=== PATIENT | female | born 2000 | race Caucasian/White ===

== ENCOUNTER 2021-02-21 12:34 | Outpatient (REF) | payer MEDICAID, SELFPAY ==
[2021-02-21 13:37] LABS: Binax Internal Control QC Valid; Binax Now Covid-19 Ag Positive (Negative)
== END 2021-02-21 12:35 | disposition home or self-care (01) ==
LOC: HO.LAB 12:34
PROVIDERS: Visit Provider Internal Medicine
DX: Z20.822 Contact with and (suspected) exposure to COVID-19 (principal)
CPT/HCPCS: 36415; C9803

== ENCOUNTER 2021-08-30 09:07 | Outpatient (REF) | payer OTHER, SELFPAY ==
[2021-08-30 10:59] LABS: MANUAL DIFF FLAG NO
[2021-08-30 11:01] LABS: Basophils Percent Auto 0.6 % (0-2); Eosinophils Absolute Auto 0.4 X10*3/uL (0.0-0.4); Hematocrit 41.7 % (37.0-47.0); Hemoglobin 14.1 g/dl (12.0-16.0); Imm Gran Abs Auto 0.02 X10*3/uL (0.00-0.03); Imm Gran Pct Auto 0.3 % (0.0-0.4); Lymphocytes Absolute Auto 2.1 X10*3/uL (1.2-4.9); Lymphocytes Percent Auto 34.1 % (20-40); Mean Corpuscular HGB Conc 33.8 g/dl (31.0-35.0); Mean Corpuscular Hemoglobin 29.6 pg (27.0-33.0); Mean Corpuscular Volume 87.6 fL (80.0-98.0); Mean Platelet Volume 10.5 fL (9.4-12.3); Monocytes Absolute Auto 0.4 X10*3/uL (0.1-1.2); Monocytes Percent Auto 6.6 % (2-11); Neutrophils Absolute Auto 3.2 x10*3/uL (2.0-8.3); Neutrophils Percent Auto 51.4 % (45-73); Platelet Count 234 X10*3/uL (160-400); Red Blood Count 4.76 X10*6/uL (4.20-5.50); Red Cell Distribution Width 12.6 % (11.0-16.0); White Blood Count 6.2 X10*3/uL (4.8-10.8)
[2021-08-30 11:24] LABS: Alanine Aminotransferase 15 U/L (0-31); Anion Gap 10 (12-20); Aspartate Amino Transferase 15 U/L (5-31); Blood Urea Nitrogen 10 mg/dL (9-16); Calcium 9.1 mg/dL (8.4-10.2); Carbon Dioxide 24 mmol/L (22-29); Chloride 108 mmol/L (96-108); Cholesterol 149 mg/dL; Estimated Glomerular Filt Rate > 60; Glucose Fasting 98 mg/dL (60-99); HDL Cholesterol 44 mg/dL; LDL Cholesterol Calculated 91 mg/dl; Sodium 137 mmol/L (135-145); Triglycerides 73 mg/dL
[2021-08-30 11:46] LABS: TSH reflex Free T4 1.48 uIU/mL (0.32-4.0); Vitamin D 25-OH Total 22.5 ng/mL (>30)
[2021-09-01 08:11] LABS: Folate 15.3 ng/mL (> or = 4.0); Vitamin B12 773 pg/mL (200-900)
== END 2021-08-30 09:08 | disposition home or self-care (01) ==
LOC: HO.HMGCLDS 09:07
PROVIDERS: Visit Provider Internal Medicine
DX: Z00.01 Encounter for general adult medical examination with abnormal findings (principal)
CPT/HCPCS: 36415; 80048; 80061; 82306; 82607; 82746; 83735; 84443; 84450; 84460; 85025

== ENCOUNTER 2024-10-02 08:26 | Outpatient (AMB) | payer OTHER, SELFPAY ==
--- OUTSIDE RECORDS SUMMARY | 2024-10-02 08:50 | XMS_ITS | Encounter Summary ---
Author Organization [facility] Address [address] [place] [phone] Phone Care Team Providers Care Evp Chief Exploration Officer Name Role Phone Guilherme Schmitz MD Primary Care Provider Liliam rodriguez Encounter Details Date Type Department Care Team (Latest Contact Info) Description 11/27/2019 ED [facility] Social History Tobacco Use Types Packs/Day Years Used Date Smoking Tobacco: Never Smokeless Tobacco: Never Comments:Never smoker Alcohol Use Standard Drinks/Week Comments No 0 (1 standard drink = 0.6 oz pur e alcohol) Comments No Sex and Gender Information Value Date Recorded Sex Assigned at Not on file Legal Sex Female 4:46 PM EDT Gender Identity Not on file Sexual Orientation Not on file documented as of this encounter ED Notes * [facility], [facility] - 11/27/2019 4:36 PM EDT EDPDOC [facility] EDM *LIVE* ED Physician Documentation Summary Report Patient: SHERI CORTES Service Date: 11/27/19 Account: [id number] : 2000 Service Time: 1636 PCP: ANALILIA DANIEL#: [id number] Pre-Evaluation Initial Comments 19 year old female complaining of Palpitations, Chest pain Pre-Evaluation Screening Done: Yes Acute Distress: No Vital Signs Reviewed: Yes Diagnositics Ordered: Yes Further ER Evaluation Required: Yes Additional Pre-Eval Comments 19-year-old female presents to the ED complaining of heart palpitations sweats, anxiety, diarrhea x1 week. EKG reviewed. Labs ordered. JORGE SHAH PA-C Nov 27, 2019 15:51 ED Physician: JORGE SHAH PA-C Documentation Date/Time: 11/27/191550 Cosigner: TIARA JOSHI DO Cosigner: <Electronically signed by JORGE SHAH PA-C> 11/27/191550 <Electronically signed by TIARA JOSHI DO> 11/28/19 0818 documented in this encounter Plan of Treatment Not on file documented as of this encounter Visit Diagnoses Not on filedocumented in this encounter Care Teams Evp Chief Exploration Officer Relationship Specialty Start Date End Date Guilherme Schmitz MD PCP - General 09/25/16 04/29/22 documented as of this encounter
--- OUTSIDE RECORDS SUMMARY | 2024-10-02 08:50 | XMS_ITS | Clinical Summary ---
Author Organization [facility] Address [address] [place] [address] Care Team Providers Care Shoe Puller Name Role Phone Karol Bangura MD Primary Care Provider Surgical History Surgery Date Site/Laterality Comments OTHER SURGICAL HISTORY PROCEDURE: DENIES PREVIOUS SURGERY Medical History Medical History Date Comments Migraines DX:Migraines Social History Tobacco Use Types Packs/Day Years Used Date Smoking Tobacco: Never Smokeless Tobacco: Former Alcohol Use Standard Drinks/Week Comments No 0 (1 standard drink = 0.6 oz pur e alcohol) Comments Unknown Sex and Gender Information Value Date Recorded Sex Assigned at Not on file Legal Sex Female 2:47 PM EST Gender Identity Not on file Sexual Orientation Not on file Obstetrics History Last Filed Vital Signs Vital Sign Reading Time Taken Comments Blood Pressure 112/79 06/12/2022 8:37 AM EDT Pulse 103 06/12/2022 8:37 AM EDT Temperature - - Respiratory Rate - - Oxygen Saturation - - Inhaled Oxygen Concentration - - Weight 95.7 kg (211 lb) 06/12/2022 8:37 AM EDT Height 177.8 cm (5' 10 ) 06/12/2022 8:37 AM EDT Body Mass Index 30.28 06/12/2022 8:37 AM EDT Plan of Treatment Health Maintenance Due Date Last Done Comments HPV Vaccines (1 - 3-dose series) 2014 DTaP,Tdap,and Td Vaccines (1 - Tdap) 2018 Hepatitis B Vaccines (1 of 3 - 19+ 3-dose series) 2018 Cervical Cancer Screening: P ap Smear 2020 HIV Screening 03/17/2023 Hepatitis C Screening 03/17/2023 Social Influencers of Health Screening 03/17/2023 COVID-19 Vaccine (1 - 2023-2 5 season) 2023 Depression Screening 02/16/2024 Influenza Vaccine (#1) 2024 HIB Vaccines Aged Out No longer eligi ble based on patient's age to complete this topic Hepatitis A Vaccines Aged Out No long er eligible based on patient's age to complete this topic IPV Vaccines Aged Out No longer eligi ble based on patient's age to complete this topic MMR Vaccines Aged Out No longer eligi ble based on patient's age to complete this topic Meningococcal ACWY Vaccine Aged Out N o longer eligible based on patient's age to complete this topic Meningococcal B Vaccine Aged Out No l onger eligible based on patient's age to complete this topic Pneumococcal Vaccine: Pediat rics (0 to 5 Years) and At-Risk Patients (6 to 49 Years) Aged Out No longer eligible b ased on patient's age to complete this topic RSV Immunization Patients Un fernando 20 months Aged Out No longer eligible b ased on patient's age to complete this topic Varicella Vaccines Aged Out No longer eligible based on patient's age to complete this topic Care Teams Shoe Puller Relationship Specialty Start Date End Date Karol Bangura MD [address] [place] [address] PCP - General 06/11/22
--- NOTE | 2024-10-02 08:57 | AM.OFFWIN_ITS ---
Intake Vital Signs 10/02/24 08:58 Height 5 ft 9 in Weight 211 lb 6 oz BMI 31.2 BP 100/62 Blood Pressure Location Lt brachial Position Sitting Pulse 90 Pulse Source Pulse Oximeter Temp 98.6 F Temp Source Oral Pulse Oximetry (%) 95 Oxygen Delivery Method Room Air Intake Visit Reasons: EP-swollen glands Patient Tobacco Use Status: Former Tobacco user Bd Special Education Teacher Required: No Is last menstrual period known: No Post menopausal: No Patient : No Allergies barakat Adverse Reaction (Verified 10/02/24 09:02) hives keflex Adverse Reaction (Uncoded 08/25/21 10:44) rash HPI HPI Comments History of Present Illness Details History - The patient is a 24-year-old female pr esenting with sore throat, swollen tonsils with white exudate. - Symptoms began late Wednesday, initially on one side, progressing to both sides by Wednesday afternoon. - She denies cough or headache but had a mild fever of 99?F, which resolved quickly. - The patient has a history of dental in fection from an infected wisdom tooth extraction on November 03 and is on amoxicillin 500 mg. - Has been taking Tylenol and Motrin for the pain with relief. - She states that when it wears off she has pain and it hurts to swallow. - She denies cough, ear pain, abd pain, n/v/d. Physical Exam General: Cooperative, healthy appearing, comfortable and no acute distress Orientation/consciousness: Patient oriented x3 Limitations: No limitations Head: Normal to inspection Ears: Hearing grossly normal bilaterally, external ears normal and TM's normal bilaterally Nose: Normal external nose present, normal nares present, and no nasal discharge present. Face and sinus: Sinuses nontender to palpation. Mouth: Normal oral and palatal mucosa present and moist mucous membranes noted. Throat: Tonsils swollen and inflamed with white exudates present. Uvula is midline. Posterior oropharynx with erythema. Tonsils Eyes: Appearance normal, both eyes and all related structures Neck: Normal visual inspection, full ROM. No lymphadenopathy noted. Respiratory: Clear to auscultation bilaterally. Normal respiratory effort, able to speak in complete sentences. No respiratory distress, not tachypneic, no tripod positioning and no use of accessory muscles. Cardiovascular: Regular rate and rhythm. Normal S1 and S2 Skin: No rashes or lesions noted Patient was informed and verbally consented to the use of an ambient scribe for clinic note documentation during this visit [facility] Medical History (Updated 08/26/21 @ 03:56 by Karol Bangura MD) No pertinent past medical history Surgical History (Updated 08/26/21 @ 03:56 by Karol Bangura MD) No pertinent past surgical history Family History (Updated 08/25/21 @ 10:55 by Karol Bangura MD) Maternal Grandmother Myocardial infarction Mother Fibromyalgia Social History Housing: House Patient Tobacco Use Status: Former Tobacco user e-Cigarette/Vaping Use: Former Use Patient : No service: No Current occupational status: employed Cognitive needs: No Hearing needs: No Vision needs: No Review of Systems Const All systems reviewed & are unremarkable except as noted in HPI and below Physical Exam Vital Signs: Last Vital Signs Temp 98.6 F 10/02/24 08:58 Pulse 90 10/02/24 08:58 BP 100/62 10/02/24 08:58 Pulse Ox 95 10/02/24 08:58 Oxygen Delivery Method Room Air 10/02/24 08:58 BMI result Body Mass Index 31.2 Assessment & Plan Assessment & Plan (1) Sore throat: Code(s): J02.9 - Acute pharyngitis, unspecified Plan Most likely strep vs HOSPICE REGISTERED NURSE vs mono vs tonsillitis Rapid is negative Plan - Discontinue amoxicillin and prescribe an alternative antibiotic for t onsillitis. - Tylenol or Motrin as needed for pain or fever - Diet as tolerated - Salt water gargles - VSS, pt well appearing - follow up with PCP Medications: New amoxicillin-pot clavulanate 875-125 mg 1 tab PO Q12H 14 tabs 0RF Coding Level of Care Code Est Pt Level 3 (50223) Diagnoses Sore throat J02.9
[2024-10-02 08:58] VITALS: BP 100/62; PULSE 90; TEMP 37; O2SAT 95; BMI 31.2
== END 2024-10-02 09:50 | disposition home or self-care (01) ==
PROVIDERS: PCP Internal Medicine; Visit Provider Physician Assistant Medical
DX: J02.9 Acute pharyngitis, unspecified (principal)

== ENCOUNTER → 2024-10-02 08:26 | Outpatient (BNVA) | payer OTHER, SELFPAY | PROVIDERS: PCP Internal Medicine; Visit Provider Physician Assistant Medical | DX: J02.9 Acute pharyngitis, unspecified (principal) | CPT/HCPCS: 99212 ==